=== PATIENT | male | born 1965 | race African-American/Black ===

== ENCOUNTER 2020-01-28 05:48 | Emergency (ER) | payer OTHER ==
[~2020-01-28] VITALS: Ht 182.9 cm; Wt 113.4 kg
--- NOTE | 2020-01-28 06:02 | NUR ---
PT BIBRA FROM A JAIL C/O BILATERAL FOOT PAIN AND SWELLING X 3 DAYS. PT STATES "PAIN IS FROM THE HIP GOING DOWN TO MY ANKLES. " DENIES ANY TRAUMA. PT AAOX4, AMBULATORY, RESPIRATIONS EVEN AND UNLABORED ONR A W/ NAD NOTED. PT CONNECTED TO THE MONITOR AND POX.
[2020-01-28] MEDS ORDERED: hydrALAZINE HCL IV 20 MG VIAL ONE ×2 (06:24→06:58)
--- NOTE | 2020-01-28 06:26 | NUR ---
SOCCER COACH AT BEDSIDE FOR LABS AND URINE
[2020-01-28] MEDS ORDERED: hydrALAZINE HCL IV 20 MG VIAL IV ONE ×2 (06:30→07:00)
[2020-01-28 06:31] LABS: BASOPHILS # (AUTO) 0.1 /CMM (0.0-0.2); BASOPHILS % (AUTO) 0.8 % (0.0-2.0); EOSINOPHILS % (AUTO) 5.5 % (0.0-6.0); HEMATOCRIT 37 % (39-51); HEMOGLOBIN 12.3 g/dL (13.5-17.5); LYMPHOCYTES % (AUTO) 32.6 % (20.0-44.0); MEAN CORPUSCULAR HGB CONC 33 g/dl (31.0-36.0); MEAN CORPUSCULAR VOLUME 92 fL (80-96); MONOCYTES # (AUTO) 0.9 /CMM (0.1-1.30); MONOCYTES % (AUTO) 9.6 % (2.0-12.0); NEUTROPHILS # (AUTO) 4.8 /CMM (1.8-8.9); NEUTROPHILS % (AUTO) 51.5 % (43.0-81.0); PLATELET COUNT (AUTO) 155 /CMM (150-450); RED BLOOD CELL COUNT(AUTO) 3.98 MIL/uL (4.5-6.0); WHITE BLOOD COUNT (AUTO) 9.3 K/uL (4.3-11.0)
[2020-01-28 06:39] LABS: APPEARANCE,URINE CLEAR (CLEAR); BILIRUBIN,URINE NEGATIVE (NEGATIVE); BLOOD, URINE MODERATE Ery/uL (NEGATIVE); CALCIUM, SERUM 8.5 mg/dL (8.5-10.1); COLOR,URINE YELLOW (YELLOW); CREATININE 3.8 mg/dL (0.6-1.3); KETONES,URINE NEGATIVE (NEGATIVE); LEUKOCYTE ESTERASE ,URINE NEGATIVE (NEGATIVE); NITRITE, URINE NEGATIVE (NEGATIVE); POTASSIUM 4.1 mmol/L (3.5-5.1); PROTEIN,URINE >=300 mg/dl (NEGATIVE); UGLUCOSE NEGATIVE (NEGATIVE); UROBILINOGEN,URINE 0.2 EU/dL (0.2)
--- NOTE | 2020-01-28 06:46 | NUR ---
XRAY AT BEDSIDE
[2020-01-28 06:52] LABS: ALBUMIN 2.4 g/dL (3.4-5.0); BILIRUBIN,DIRECT 0.1 mg/dL (0.0-0.2); BILIRUBIN,TOTAL 0.1 mg/dL (0.2-1.0)
[2020-01-28 06:53] LABS: B-TYPE NATRIURETIC PEPTIDE 1189 PG/ML (0-125)
[2020-01-28] MEDS ORDERED: HYDROCODONE/APAP 10/325MG 1 EA TABLET ONE (07:04)
--- NOTE | 2020-01-28 07:29 | NUR ---
PER ER DR MEREDITH, PT IS CLEAR TO BE DISCHARGED.
[2020-01-28] MEDS ORDERED: HYDROCODONE/APAP 10/325MG 1 EA TABLET PO ONE ×2 (07:30)
--- NOTE | 2020-01-28 07:30 | NUR ---
DR MEREDITH MADE AWARE OF ELEVATED BP. PT IS CLEARED TO BE DISCHARGED.
--- NOTE | 2020-01-28 07:30 | NUR ---
Patient given written and verbal discharge instructions. Patient verbalizes understanding of instructions. Patient is ambulatory with steady gait. Refuses offer of skilled nursing placement. Patient given list of available shelters in surrounding area.
--- NOTE | 2020-01-28 07:33 | NUR ---
Food and drinks provided.
[2020-01-28 07:34] VITALS: BP 181/97
== END 2020-01-28 07:36 | disposition home or self-care (01) ==
LOC: ER 05:55
DX: N28.9 Disorder of kidney and ureter, unspecified (principal); R60.0 Localized edema; I10 Essential (primary) hypertension; J45.909 Unspecified asthma, uncomplicated
CPT/HCPCS: 36415; 71045; 80048; 80076; 81001; 83880; 84484; 85025; 96374; 99284; J0360 ×2; 81000-TC

== ENCOUNTER 2021-08-14 01:34 | Emergency (ER) | payer OTHER ==
[~2021-08-14] VITALS: Ht 182.9 cm; Wt 90.7 kg
--- NOTE | 2021-08-14 01:55 | NUR ---
pt came in c/o nausea, and stating he pulled out hd cath yesterday. pt is a/o x4. pt placed on monitor.
[2021-08-14] MEDS ORDERED: ONDANSETRON HCL/PF 4 MG/2 ML VIAL ONE (01:58)
[2021-08-14] MEDS ORDERED: ONDANSETRON HCL/PF 4 MG/2 ML VIAL IVP ONE (02:00)
[2021-08-14 03:02] LABS: ALBUMIN 3.9 g/dL (3.4-5.0); BILIRUBIN,DIRECT 0.1 mg/dL (0.0-0.2); BILIRUBIN,TOTAL 0.2 mg/dL (0.2-1.0); CALCIUM, SERUM 8.9 mg/dL (8.5-10.1); POTASSIUM 3.8 mmol/L (3.5-5.1); TOTAL PROTEIN, SERUM 8.7 g/dL (6.4-8.2)
[2021-08-14 03:26] LABS: BASOPHILS % (AUTO) 0.7 % (0.0-2.0); EOSINOPHILS % (AUTO) 1.3 % (0.0-6.0); HEMATOCRIT 30 % (39-51); HEMOGLOBIN 10.2 g/dL (13.5-17.5); LYMPHOCYTES % (AUTO) 14.2 % (20.0-44.0); MEAN CORPUSCULAR HGB CONC 34 g/dl (31.0-36.0); MEAN CORPUSCULAR VOLUME 97 fL (80-96); MONOCYTES # (AUTO) 0.3 K/uL (0.1-1.30); MONOCYTES % (AUTO) 4.7 % (2.0-12.0); NEUTROPHILS # (AUTO) 5.5 K/uL (1.8-8.9); NEUTROPHILS % (AUTO) 79.1 % (43.0-81.0); PLATELET COUNT (AUTO) 140 K/uL (150-450); RED BLOOD CELL COUNT(AUTO) 3.15 MIL/uL (4.5-6.0)
--- NOTE | 2021-08-14 03:27 | NUR ---
CALLED [facility] FOR PUI TELE BED
--- NOTE | 2021-08-14 04:19 | NUR ---
SPEAKING WITH HOSPITALIST
[2021-08-14] MEDS ORDERED: hydrALAZINE HCL IV 20 MG VIAL IV PRN (04:30)
[2021-08-14] MEDS ORDERED: MAGNESIUM HYDROXIDE 30 ML UDC PO PRN (04:30)
[2021-08-14] MEDS ORDERED: LABETALOL 20 MG/4 ML VIAL IV PRN (04:30)
[2021-08-14] MEDS ORDERED: ONDANSETRON HCL/PF 4 MG/2 ML VIAL IVP PRN (04:30)
[2021-08-14] MEDS ORDERED: ACETAMINOPHEN 325 MG TABLET PO PRN (04:30)
[2021-08-14] MEDS ORDERED: MAG HYDROX/AL HYDROX/SIMETH 30 ML UDC PO PRN (04:30)
[2021-08-14] MEDS ORDERED: MORPHINE SULFATE INJ 2 MG/ML DISP.SYRIN IV PRN (04:30)
[2021-08-14] MEDS ORDERED: Z GUARD REMEDY 2 OZ OINT TP PRN (04:30)
[2021-08-14 05:24] VITALS: BP 142/95
--- NOTE | 2021-08-14 06:40 | NUR ---
PT IV WAS FOUND ON THE BED WHICH WAS PULLED BY THE PT. CHECKED ARMS NO ACTIVE BLEEDING NOTED.
--- NOTE | 2021-08-14 06:40 | NUR ---
Patient does not wish to proceed with medical care recommended by Dr. Klein. Patient given information related to possible complications, up to and including , which could occur as a result of leaving the hospital at this time. Patient verbalizes understanding of risks involved due to leaving against medical advice. Patient just left and would not sign AMA form.
[2021-08-14] MEDS ORDERED: HEPARIN SODIUM, PORCINE 5000 UNITS/1 ML VIAL SQ SCH (09:00)
== END 2021-08-14 06:58 | disposition left against medical advice (07) ==
LOC: ER 01:38
DX: I12.0 Hypertensive chronic kidney disease with stage 5 chronic kidney disease or end stage renal disease (principal); N18.6 End stage renal disease; Z99.2 Dependence on renal dialysis; J45.909 Unspecified asthma, uncomplicated; T82.42XA Displacement of vascular dialysis catheter, initial encounter; Z20.822 Contact with and (suspected) exposure to COVID-19; Z91.14 Patient's other noncompliance with medication regimen; Z53.29 Procedure and treatment not carried out because of patient's decision for other reasons; R00.1 Bradycardia, unspecified
CPT/HCPCS: 36415; 71045; 80048; 80076; 83690; 85025; 87081; 87426; 93005; 96374; 99285; C9803 ×2; J2405; U0003